=== PATIENT | female | born 1980 | race African-American/Black ===

== ENCOUNTER 2016-05-22 15:58 | Emergency (ER) | payer OTHER ==
[~2016-05-22] VITALS: Ht 175.3 cm; Wt 136.1 kg
[2016-05-22] MEDS ORDERED: METF500T PO (16:41)
[2016-05-22] MEDS ORDERED: KETOROLAC 30 MG/ML VIAL (J1885) IM ONE (17:15)
[2016-05-22 19:06] VITALS: BP 125/75
--- NOTE | 2016-05-23 07:20 | REP ---
REASON: Left lower rib pain. PRIORS: None. The lung payan are hypo expanded, but otherwise clear. The superior mediastinal structures are midline. The cardiac silhouette is unremarkable in size, shape, and position. The diaphragmatic surfaces of the lungs are regular, and the costophrenic angles are clear. The pulmonary payan are clear. The imaged osseous structures are intact. IMPRESSION: There is no acute cardiopulmonary disease. Signed by Tariq Sparrow DO 05/23/2016 10:04 A
--- NOTE | 2016-05-23 09:05 | ECGEPIP ---
Stationary ECG Study [facility] - ED Test Date: 2016-05-22 Pat Name: JOSE GALDAMEZ Department: Room: - Gender: F [employer]: hema : 1980 Requested By: Nancy Gaming Order Number: [id number] Reading MD: Nancy Gaming Measurements Intervals [place] Rate: 74 P: 21 NE: 129 QRS: 12 QRSD: 89 T: 120 QT: 346 QTc: 386 Interpretive Statements SINUS RHYTHM NONSPECIFIC ST & T-WAVE ABNORMALITY NO PRIOR FOR COMPARISON Electronically Signed On 05-23-2016 9:05:39 EST by Nancy Gaming
== END 2016-05-22 19:20 | disposition home or self-care (01) ==
LOC: M ED 17:20
DX: J00 Acute nasopharyngitis [common cold] (principal); B34.9 Viral infection, unspecified; E11.9 Type 2 diabetes mellitus without complications; Z86.73 Personal history of transient ischemic attack (TIA), and cerebral infarction without residual deficits; Z79.84 Long term (current) use of oral hypoglycemic drugs; Z88.8 Allergy status to other drugs, medicaments and biological substances
CPT/HCPCS: 71020; 81025; 87804; 93005; 96372; 99283; J1885